=== PATIENT | female | born 1980 | race Caucasian/White ===

== ENCOUNTER 2016-06-13 01:18 | Emergency (ER) | payer MEDICAID ==
[~2016-06-13] VITALS: Ht 157.5 cm; Wt 72.6 kg
[2016-06-13 01:18] VITALS: BP 138/83; PULSE 54; RESP 13; TEMP 97.8; O2SAT 100
--- NOTE | 2016-06-13 01:18 | NUR ---
Patient to ER bed 2 to gown for evaluation. Side rails up. Report given to ABDOUL Angeles.
--- NOTE | 2016-06-13 01:34 | NUR ---
Pt brought in by BLS transport in stable condition. Pt was working at [facility] [employer] and had sudden onset of feeling faint and diaphoretic approx 40 min ago. Pt c/o epigastric pain 5/10 that radiated up towards her chest. Pt stated that she had the same episode at 1430 yesterday. Pt stated that she thought it might have been her blood sugar so she ate a chocolate donut and orange juice. Pt able to ambulate to restroom w/ steady gait. -n/v/d -sob. Placed pt on hall monitor. No acute distress noted at this time, will continue to monitor.
--- NOTE | 2016-06-13 01:54 | NUR ---
ER at bedside examining patient.
[2016-06-13] MEDS ORDERED: NACL 0.9% 1,000 ML IV ONE (02:03)
[2016-06-13] MEDS ORDERED: PANTOPRAZOLE SODIUM 40 MG/VIAL (PROTONIX) IVP ONE (02:15)
[2016-06-13] MEDS ORDERED: ACETAMINOPHEN 325 MG TABLET PO ONE (02:15)
[2016-06-13] MEDS ORDERED: ONDANSETRON HCL 4 MG/2 ML VIAL IVP ONE (02:15)
--- NOTE | 2016-06-13 02:20 | NUR ---
# 20 gauge angiocath placed to LEFT AC. Use of asceptic technique. Opsite placed over site. Blood return noted. Blood for lab drawn from site. Flushed with 10 cc of normal saline. No evidence of infiltration noted. Patient tolerated well.
[2016-06-13 02:44] LABS: BASOPHILS # (AUTO) 0.1 K/uL (0.0-0.2); BASOPHILS % (AUTO) 0.5 % (0.0-2.0); EOSINOPHILS # (AUTO) 0.4 K/uL (0.0-0.4); HEMATOCRIT 36.1 % (36-48); HEMOGLOBIN 11.5 g/dL (12.0-16.0); LYMPHOCYTES # (AUTO) 3.7 K/uL (1.0-5.5); LYMPHOCYTES % (AUTO) 28.1 % (20.5-51.5); MEAN CORPUSCULAR HEMOGLOBIN 25 pg (27-31); MEAN CORPUSCULAR HGB CONC 32 % (32-36); MEAN CORPUSCULAR VOLUME 79 fL (79.0-98.0); MONOCYTES # (AUTO) 0.7 K/uL (0.0-1.0); MONOCYTES % (AUTO) 5.2 % (1.7-9.3); NEUTROPHILS # (AUTO) 8.2 K/uL (1.8-7.7); NEUTROPHILS % (AUTO) 63.2 % (40.0-70.0); PLATELET COUNT (AUTO) 371 K/uL (130-430); RED CELL DISTRIBUTION WIDTH 16.6 % (9.0-15.0); WHITE BLOOD COUNT (AUTO) 13.1 K/uL (4.8-10.8)
--- NOTE | 2016-06-13 02:47 | NUR ---
Pt refused tylenol and zofran. Dr. Lemons is aware.
[2016-06-13 02:48] LABS: BILIRUBIN,URINE NEGATIVE (NEGATIVE); BLOOD, URINE 2+ (NEGATIVE); CLARITY/URINE CLOUDY (CLEAR); COLOR,URINE RED (YELLOW); GLUCOSE,URINE NEGATIVE (NEGATIVE); KETONES,URINE NEGATIVE (NEGATIVE); LEUKOCYTE ESTERASE ,URINE NEGATIVE (NEGATIVE); NITRITE, URINE NEGATIVE (NEGATIVE); PROTEIN URINE 2+ (NEGATIVE); UROBILINOGEN,URINE 0.2 (0.2-1.0)
[2016-06-13 02:52] LABS: CALCIUM 9.2 mg/dL (8.4-11.0); CREATININE 0.62 mg/dL (0.55-1.30); POTASSIUM 3.8 mmol/L (3.5-5.1)
[2016-06-13 02:53] LABS: WBC,URINE 0-3 /HPF (0-3)
[2016-06-13 02:54] LABS: BACTERIA,URINE FEW /HPF (None Seen); MUCUS,URINE None Seen /LPF (None Seen); RBC,URINE >100 /HPF (0-3)
[2016-06-13 02:56] LABS: ALBUMIN 3.9 g/dL (3.4-4.8); TOTAL BILIRUBIN 0.2 mg/dL (0.0-1.0); TOTAL PROTEIN, SERUM 8.1 g/dL (6.4-8.3)
[2016-06-13 03:37] VITALS: BP 132/73; PULSE 60; RESP 12; TEMP 97.9; O2SAT 90
--- NOTE | 2016-06-13 03:37 | NUR ---
Patient given written and verbal discharge instructions and verbalizes understanding. ER MD GIL discussed with patient the results and treatment provided. Patient in stable condition. ID arm band removed. IV catheter removed intact and dressing applied, no active bleeding. Rx of PROTONIX given. Patient educated on pain management and to follow up with PMD. Pain Scale 0/10. Opportunity for questions provided and answered.
== END 2016-06-13 03:37 | disposition home or self-care (01) ==
LOC: SED 01:18
DX: R10.13 Epigastric pain (principal)
CPT/HCPCS: 36415; 80053; 81000; 81025; 82962; 83690; 84484; 85025; 93005; 96361; 96374; 99285; C9113; J7030